=== PATIENT | male | born 1955 | race Caucasian/White ===

== ENCOUNTER 2016-08-06 17:28 | Inpatient (IN) | payer BC, OTHER ==
--- NOTE | 2016-08-06 18:23 | ED Physician Documentation ---
History of Present Illness - Stated complaint Stated Complaint: RT TOE OOZE - Chief complaint Chief Complaint: Ext Problem - History obtained from History obtained from: Patient, Family - History of Present Illness Timing: How many days ago (3) Pain level max: 0 Pain level now: 0 Improved by: nothing Worsened by: nothing - Additonal information Additional information: Type II DM, R great toe amputated 02/2016. Now swelling, redness and drainage. Diabetic neuropathy. Review of Systems Ten Systems: 10 systems reviewed and negative Constitutional: denies: Fever, Chills Nose: denies: Rhinorrhea / runny nose, Congestion Cardiac: denies: Chest pain / pressure Respiratory: denies: Cough GI: denies: Abdominal Pain, Vomiting Skin: denies: Rash Musculoskeletal: denies: Neck pain, Back pain Neurologic: denies: Focal weakness, Numbness, Headache PD PAST MEDICAL HISTORY - Past Medical History Past Medical History: Yes Endocrine/Autoimmune: Type 2 diabetes - Past Surgical History Past Surgical History: Yes Ortho: Amputation, Other HEENT: Tonsil/Adenoidectomy - Present Medications Home Medications: Ambulatory Orders Medication Instructions Recorded Confirmed Aspirin [Adult Low Dose Aspirin EC] 1 tab PO DAILY 08/06/16 08/06/16 Insulin Glargine [Lantus] 62 unit SQ DAILY 08/06/16 08/06/16 Sitagliptin Phos/Metformin HCl 1 tab PO BID 08/06/16 08/06/16 [Janumet 50-1,000 mg Tablet] - Allergies Allergies/Adverse Reactions: Allergies Allergy/AdvReac Type Severity Reaction Status Date / Time No Known Drug Allergies Allergy Verified 08/06/16 17:45 - Social History Does the pt smoke?: No Smoking Status: Never smoker Does the pt drink ETOH?: No Does the pt have substance abuse?: No - Immunizations Immunizations are current?: Yes - POLST Patient has POLST: No PD ED PE NORMAL - Vitals Vital signs reviewed: Yes - General General: Alert and oriented X 3, No acute distress - HEENT HEENT: Moist mucous membranes - Neck Neck: Supple, no meningeal sign - Cardiac Cardiac: RRR - Respiratory Respiratory: No respiratory distress, Clear bilaterally - Abdomen Abdomen: Soft, Non tender - Derm Derm: Warm and dry - Extremities Extremities: Other (R great toe s/p amputation. R 2nd toe is erythematous, swollen with necrotic area to the distal aspect.) - Neuro Neuro: Alert and oriented X 3 - Psych Psych: Normal mood, Normal affect Results - Vitals Vitals: Vital Signs - 24 hr 08/06/16 08/06/16 17:43 19:40 Temperature 37 C Heart Rate 96 92 Respiratory 16 17 Rate Blood Pressure 161/84 H 142/81 H O2 Saturation 100 95 Oxygen O2 Source Room air - Labs Labs: Laboratory Tests 08/06/16 08/06/16 08/06/16 18:30 18:30 18:30 WBC 10.6 RBC 5.88 Hgb 17.0 Hct 49.1 MCV 83.5 MCH 28.9 MCHC 34.5 RDW 15.0 Plt Count 312 MPV 8.0 Neut # 7.3 H Lymph # 2.0 [place] # 0.9 Eos # 0.3 Baso # 0.1 Absolute Nucleated RBC 0.01 Nucleated RBCs 0.1 ESR 4 Sodium 133 L Potassium 4.5 Chloride 99 L Carbon Dioxide 22 Anion Gap 12.0 BUN 17 Creatinine 1.2 Estimated GFR (MDRD) 62 L Glucose 431 H Calcium 9.5 C-Reactive Protein 4.2 H - Rads (name of study) R foot xray Radiology: Prelim report reviewed, EMP read contemporaneously, See rad report ( Fragmentation of the distal second metatarsal. This may be secondary to fracture however suspicious for osteomyelitis. Correlate clinically. ) PD MEDICAL DECISION MAKING - ED course Complexity details: reviewed results, re-evaluated patient, considered differential, d/w patient, d/w family, d/w retail consultant ED course: Patient is a 61-year-old male who is diabetic and has severe diabetic neuropathy in his feet. Does not have any sensation in his feet. The right great toe has artery been amputated at [facility] earlier this year. The right second digit is now erythematous, fusiform swelling with necrosis at the tip. Necrotic skin was removed and debrided. Xeroform gauze was placed over this wound. Wound cultures obtained. X-ray is concerning for possible osteomyelitis. Elevated CRP, though normal ESR. Mixed picture. Discussed the case with Dr. Scott, orthopedics who will evaluate the patient in the hospital. Recommends admission to the hospitalist. I spoke with the hospitalist who accepts for admission. Patient was given vancomycin and ciprofloxacin here. Will likely obtain MRI in the morning to confirm if this is an old fracture or osteomyelitis. This document was made in part using voice recognition software. While efforts are made to proofread this document, sound alike and grammatical errors may occur. Departure - Departure Disposition: [facility] DC/Xfer Clinical Impression: Diabetic foot infection Osteomyelitis Qualifiers: Osteomyelitis type: unspecified type Osteomyelitis location: foot Laterality: right Qualified Code(s): M86.9 - Osteomyelitis, unspecified Cellulitis Qualifiers: Site of cellulitis: extremity Site of cellulitis of extremity: toe Laterality: right Qualified Code(s): L03.031 - Cellulitis of right toe Condition: Stable Discharge Date/Time: 08/06/16 21:01
[2016-08-06 18:40] LABS: BASOPHILS # (AUTO) 0.1 10^3/uL (0.0-0.1); BASOPHILS % (AUTO) 0.6 %; EOSINOPHILS # (AUTO) 0.3 10^3/uL (0.0-0.7); EOSINOPHILS % (AUTO) 2.5 %; HCT - HEMATOCRIT 49.1 % (42.0-52.0); LYMPHOCYTES % (AUTO) 19.3 %; MEAN CORPUSCULAR HEMOGLOBIN 28.9 pg (27.0-31.0); MEAN CORPUSCULAR HGB CONC 34.5 g/dL (32.0-36.0); MEAN CORPUSCULAR VOLUME 83.5 fL (80.0-94.0); MONOCYTES # (AUTO) 0.9 10^3/uL (0.0-1.0); MONOCYTES % (AUTO) 8.7 %; NEUTROPHILS # (AUTO) 7.3 10^3/uL (1.5-6.6); NEUTROPHILS % (AUTO) 68.9 %; NUCLEATED RED BLOOD CELLS AUTO 0.1 /100WBC; RED BLOOD COUNT 5.88 10^6/uL (4.70-6.10); UNCORRECTED WHITE BLOOD COUNT 10.6 x10^3/uL; WHITE BLOOD COUNT 10.6 x10^3/uL (4.8-10.8)
[2016-08-06 18:57] LABS: CALCIUM 9.5 mg/dL (8.5-10.3); CREATININE 1.2 mg/dL (0.6-1.2); POTASSIUM 4.5 mmol/L (3.5-5.0)
--- NOTE | 2016-08-06 18:59 | XRAY Preliminary Report ---
Exam: XR Foot 3 View RT IMPRESSION: Fragmentation of the distal second metatarsal. This may be secondary to fracture however suspicious for osteomyelitis. Correlate clinically. [facility] SITE ID: [id number]
--- NOTE | 2016-08-06 19:01 | XRAY Report ---
EXAM: RIGHT FOOT RADIOGRAPHY EXAM DATE: 08/06/2016 06:29 PM. CLINICAL HISTORY: R 2nd toe infection. COMPARISON: None. TECHNIQUE: 3 views. FINDINGS: Bones: Status post transverse metatarsal amputation. There is a fracture through the second metatarsa l head with bony fragmentation and periosteal bone formation. No other evidence of fracture. Joints: Normal. No subluxations. Soft Tissues: Forefoot soft tissue swelling. IMPRESSION: Fragmentation of the distal second metatarsal. This may be secondary to fracture however suspicious for osteomyelitis. Correlate clinically. [facility] Referring Provider Line: [phone] SITE ID: [id number]
[2016-08-06] MEDS ORDERED: VANCOMYCIN INJ 1 GM in SODIUM CHLORIDE 0.9% 250 ML IV STA (19:04)
[2016-08-06] MEDS ORDERED: CIPROFLOXACIN 400 MG/200 ML 200 ML IV ONE ×2 (19:04→19:20)
[2016-08-06] MEDS ORDERED: VANCOMYCIN 1 GM VIAL ONE ×2 (19:20→20:46)
[2016-08-06] MEDS ORDERED: INSULIN REGULAR HUMAN 100 UNIT/1 ML 10 ML MDV IVP SCH (20:08)
[2016-08-06] MEDS ORDERED: oxyCODONE 5 MG TABLET PO PRN (20:09)
[2016-08-06] MEDS ORDERED: ONDANSETRON 4 MG/2 ML VIAL IVP PRN (20:09)
[2016-08-06] MEDS ORDERED: SODIUM CHLORIDE FLUSH 0.9% 10 ML SYRINGE IVP PRN (20:09)
[2016-08-06] MEDS ORDERED: ZOLPIDEM 5 MG TABLET PO PRN (20:09)
[2016-08-06] MEDS ORDERED: ACETAMINOPHEN 325 MG TABLET PO PRN (20:09)
[2016-08-06] MEDS ORDERED: INSULIN REGULAR HUMAN 100 UNIT/1 ML 10 ML MDV ONE (20:42)
[2016-08-06] MEDS ORDERED: INSULIN GLARGINE 300 UNIT/3 ML PEN SUBQ SCH (21:00)
[2016-08-06] MEDS: INSULIN ASPART 300 UNIT/3 ML PEN SUBQ SCH (21:44)
[2016-08-06] MEDS: SODIUM CHLORIDE 0.9% 500 ML IV SCH (21:46)
[2016-08-06] MEDS: SODIUM CHLORIDE FLUSH 0.9% 10 ML SYRINGE IVP SCH (21:46)
[2016-08-07 06:33] LABS: BILIRUBIN,URINE NEGATIVE (NEGATIVE); PH,URINE 5.5 PH (5.0-7.5)
[2016-08-07 06:36] LABS: UA w/ MICROSCOPIC CHARGE YES
[2016-08-07 06:43] LABS: UR CULTURE IF IND NOT INDICATED; WBC,URINE 0-3 /HPF (0-3)
[2016-08-07 06:57] LABS: HEMOGLOBIN A1C 1.49 g/dL
[2016-08-07] MEDS: INSULIN ASPART 300 UNIT/3 ML PEN SUBQ SCH ×4 (09:43→20:42)
[2016-08-07] MEDS: SODIUM CHLORIDE FLUSH 0.9% 10 ML SYRINGE IVP SCH ×3 (09:43→22:33)
--- NOTE | 2016-08-07 10:15 | PROVIDER PROGRESS NOTE ---
Subjective - Prog Note Date Prog Note Date: 08/07/16 Prog Note Time: 10:12 - Subjective Pt reports feeling: No change (No pain. Insensate foot to about the posterior ankle area/distal calf) Subjective: Has noticed swollen, red 2nd toe x 4-5 days. Poor sensation in foot as a baseline. No fever or chills. No known trauma to foot. Hx of recent (02/2016) right great toe amputation due to toe osteomyelitis - done at [facility]. Objective - Vital Signs/Intake & Output Vital Signs: Vital Signs x48h Temp Pulse Resp BP Pulse Ox 08/07/16 07:32 37.0 C 75 14 162/76 H 94 Intake & Output: Intake & Output 08/04/16 08/05/16 08/06/16 08/07/16 23:59 23:59 23:59 23:59 Intake Total 450 1195 Balance 450 1195 - Lab Results Fish Bones: 08/06/16 18:30 08/06/16 18:30 Other Labs: Lab Results x24hrs 08/07/16 08/07/16 08/07/16 Range/Units 07:51 06:10 05:13 POC Whole Bld Glucose 91 (70 - 100) mg/dL Glycated Hemoglobin 9.7 H (4.6-6.2) % Estim Average Glucose 232 H (70-100) Urine Color YELLOW Urine Clarity CLEAR (CLEAR) Urine pH 5.5 (5.0-7.5) PH Ur Specific [place] >=1.030 H (1.002-1.030) Urine Protein 30 H (NEGATIVE) mg/dL Urine Glucose (UA) >=1000 H (NEGATIVE) mg/dL Urine Ketones NEGATIVE (NEGATIVE) mg/dL Urine Occult Blood NEGATIVE (NEGATIVE) Urine Nitrite NEGATIVE (NEGATIVE) Urine Bilirubin NEGATIVE (NEGATIVE) Urine Urobilinogen 0.2 (NORMAL) (NORMAL) E.U./dL Ur Leukocyte Esterase NEGATIVE (NEGATIVE) Urine RBC 0-5 (0-5) /HPF Urine WBC 0-3 (0-3) /HPF Ur Squamous Epith Cells RARE Squamous (<= Few) Urine Bacteria None Seen (None Seen) /HPF Ur Microscopic Review INDICATED Urine Culture Comments NOT INDICATED 08/06/16 Range/Units 21:43 POC Whole Bld Glucose 128 H (70 - 100) mg/dL Glycated Hemoglobin (4.6-6.2) % Estim Average Glucose (70-100) Urine Color Urine Clarity (CLEAR) Urine pH (5.0-7.5) PH Ur Specific [place] (1.002-1.030) Urine Protein (NEGATIVE) mg/dL Urine Glucose (UA) (NEGATIVE) mg/dL Urine Ketones (NEGATIVE) mg/dL Urine Occult Blood (NEGATIVE) Urine Nitrite (NEGATIVE) Urine Bilirubin (NEGATIVE) Urine Urobilinogen (NORMAL) E.U./dL Ur Leukocyte Esterase (NEGATIVE) Urine RBC (0-5) /HPF Urine WBC (0-3) /HPF Ur Squamous Epith Cells (<= Few) Urine Bacteria (None Seen) /HPF Ur Microscopic Review Urine Culture Comments - Diagnostic Imaging Diagnostic Imaging Comments: XR show probable old healing 2nd MT fracture. Possible old fracture of distal 3rd and 4th MT head as well. Minimal cherry ges seen of 2nd toe phalanges - Other Results/Comments Other Results/Comments: EXAM: Hammer toe deformity of right 2nd toe. Absent great toe from prior amputation () Second toe is swollen and red with callous at tip of toe. No drainage. Numb toe. Gross sensation minimal to about posterior ankle/ distal calf. No lymphangitis Assessment/Plan - Problem List (1) Diabetic foot infection Impression: Unclear whether patient has a cellulitis alone or whether he has underlying osteomyelitis PLAN: Agree with IV antibiotics and will review scheduled MRI scan to determine if ther is any associated osteomyelitis in 2nd toe.
[2016-08-07] MEDS ORDERED: GADOBUTROL 10 MMOL/10 ML SYRINGE IVP ONE (10:59)
--- NOTE | 2016-08-07 11:08 | CONSULTATION NOTE ---
ORTHOPEDIC CONSULTATION DATE OF CONSULTATION: 08/07/2016 00:00:00 REQUESTING PROVIDER: Yunier Moody M.D., of the emergency room. CHIEF COMPLAINT: "My right 2nd toe is red and swollen." HISTORY OF PRESENT ILLNESS: The patient is a 61-year-old male diabetic, insulin-dependent f or the past 10-12 years, who has a history of a recent right great toe amputation due to osteomyeliti s from a diabetic foot infection in February [address] [facility], who presented to the emergency room on the day of his admission with a 4-5 day history of progressively swollen and red ri ght 2nd toe. He has a chronic hammertoe deformity. Has not noted any fever or drainage from his toe. Was concerned about the appearance of the toe, which prompted his evaluation in the emergency room. T he patient denies any recent trauma to his foot. He is aware that he has a relatively insensate foot from his diabetes. PHYSICAL EXAMINATION: Shows a right foot with an absent great toe on the right foot. Right 2nd toe is diffusely swollen and erythematous from about the MTP joint distally. He does have a typical hammert oe type deformity. There is a callus at the tip of the toe, but no open wounds or drainage noted. Toe is insensate and has no pain on palpation. Had some mild forefoot swelling noted. Sensation appeared to be diminished until the posterior ankle and distal calf level. No lymphangitis noted. IMAGING: X-rays of the right foot show no obvious bony destruction or erosions in the 2nd toe phalang es. Evidence of an old healing fracture of his 2nd metatarsal, as well as some what appear to be batter depositor heriberto changes in the 3rd and 4th metatarsal heads as well. Laboratories were significant for a normal white cell count and normal sedimentation rate. CRP was el evated at 4.0. ASSESSMENT: Right 2nd toe diabetic foot infection - unclear whether this involves the underlying phal anges or not based on exam and studies today. PLAN: Agree with starting the patient on IV antibiotics, has been done. Also agree to obtain an MRI s can of the foot, which is being done this morning. Depending on the results, we will determine what w e will proceed with. If the infection appears to be only of the soft tissue of the 2nd toe, will cont inue to treat this cellulitis with the IV antibiotics. If, however, it appears as if the bone is invo lved and that he has early osteomyelitis, would likely recommend amputation of the toe as a definitiv e treatment for removing the osteomyelitis of the toe. JOB #: [id number] EXT JOB #:[id number]
[2016-08-07] MEDS: ENOXAPARIN 40 MG/0.4 ML SYRINGE SUBQ SCH (11:56)
[2016-08-07] MEDS: POLYETHYLENE GLYCOL 3350 17 GM PACKET PO SCH (11:56)
--- NOTE | 2016-08-07 12:40 | MRI Report ---
EXAM: RIGHT FOREFOOT MRI WITHOUT AND WITH CONTRAST EXAM DATE: 08/07/2016 11:15 AM. CLINICAL HISTORY: Infection right great toe 3 years ago with subsequent amputation. Recent swelling a nd infection of the right second toe. COMPARISON: X-ray 08/06/2016. TECHNIQUE: Multiplanar, multisequence T1-weighted and fluid-sensitive sequences of the forefoot befor e and after administration of intravenous contrast. IV contrast: 9 cc gadavist administered, 1 cc was shital. Other: None. FINDINGS: Bones: There is a displaced fracture of the second metatarsal neck with marrow edema and dorsal displ acement. There are nondisplaced fractures of the third and fourth metatarsal heads with mild distraction and m oderate marrow edema. Partial collapse of the third metatarsal head. Marrow edema and mild marrow enhancement second toe distal phalanx tip with overlying soft tissue patricia ma in the second toe. Marrow edema of the distal first metatarsal stump. Associated marrow enhancement of the second, third and fourth distal metatarsals as well as the first metatarsal stump margin. Soft tissues: Moderate soft tissue edema and enhancement of the forefoot surrounding the first throug h fourth distal metatarsals and toes. Small second MTP joint effusion. Probable plantar ulcer under the second metatarsal head, seen on (1700/) with sinus tract extending to the plantar margin of the second metatarsal head. IMPRESSION: 1. 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 2. Small soft tissue tract extending from plantar second metatarsal head to the plantar skin surface. Unclear whether this is a pinpoint ulcer with sinus tract, or has not yet reached the skin surface. 3. Marrow edema and soft tissue edema distal second toe and distal phalanx. Differential includes rep etitive injury from hammertoe deformity versus early osteomyelitis. 4. Difficult to distinguish between osteomyelitis and neuropathic joint disease, given the degree of underlying fractures. 5. Moderate soft tissue edema and enhancement consistent with cellulitis. [facility] MUSCULOSKELETAL RADIOLOGY SECTION Verbal results discussed with Dr. Scott at 12:30 PM on 08/07/2016. Referring Provider Line: [phone] SITE ID: [id number]
--- NOTE | 2016-08-07 12:50 | PROVIDER PROGRESS NOTE ---
Subjective - Prog Note Date Prog Note Date: 08/07/16 Prog Note Time: 12:42 - Subjective Pt reports feeling: No change Objective - Vital Signs/Intake & Output Vital Signs: Vital Signs x48h Temp Pulse Resp BP Pulse Ox 08/07/16 07:32 37.0 C 75 14 162/76 H 94 Intake & Output: Intake & Output 08/04/16 08/05/16 08/06/16 08/07/16 23:59 23:59 23:59 23:59 Intake Total 450 1195 Balance 450 1195 - Lab Results Fish Bones: 08/06/16 18:30 08/06/16 18:30 Other Labs: Lab Results x24hrs 08/07/16 08/07/16 08/07/16 Range/Units 11:18 07:51 06:10 POC Whole Bld Glucose 185 H 91 (70 - 100) mg/dL Glycated Hemoglobin (4.6-6.2) % Estim Average Glucose (70-100) Urine Color YELLOW Urine Clarity CLEAR (CLEAR) Urine pH 5.5 (5.0-7.5) PH Ur Specific [place] >=1.030 H (1.002-1.030) Urine Protein 30 H (NEGATIVE) mg/dL Urine Glucose (UA) >=1000 H (NEGATIVE) mg/dL Urine Ketones NEGATIVE (NEGATIVE) mg/dL Urine Occult Blood NEGATIVE (NEGATIVE) Urine Nitrite NEGATIVE (NEGATIVE) Urine Bilirubin NEGATIVE (NEGATIVE) Urine Urobilinogen 0.2 (NORMAL) (NORMAL) E.U./dL Ur Leukocyte Esterase NEGATIVE (NEGATIVE) Urine RBC 0-5 (0-5) /HPF Urine WBC 0-3 (0-3) /HPF Ur Squamous Epith Cells RARE Squamous (<= Few) Urine Bacteria None Seen (None Seen) /HPF Ur Microscopic Review INDICATED Urine Culture Comments NOT INDICATED 08/07/16 08/06/16 Range/Units 05:13 21:43 POC Whole Bld Glucose 128 H (70 - 100) mg/dL Glycated Hemoglobin 9.7 H (4.6-6.2) % Estim Average Glucose 232 H (70-100) Urine Color Urine Clarity (CLEAR) Urine pH (5.0-7.5) PH Ur Specific [place] (1.002-1.030) Urine Protein (NEGATIVE) mg/dL Urine Glucose (UA) (NEGATIVE) mg/dL Urine Ketones (NEGATIVE) mg/dL Urine Occult Blood (NEGATIVE) Urine Nitrite (NEGATIVE) Urine Bilirubin (NEGATIVE) Urine Urobilinogen (NORMAL) E.U./dL Ur Leukocyte Esterase (NEGATIVE) Urine RBC (0-5) /HPF Urine WBC (0-3) /HPF Ur Squamous Epith Cells (<= Few) Urine Bacteria (None Seen) /HPF Ur Microscopic Review Urine Culture Comments - Diagnostic Imaging Diagnostic Imaging Comments: MRI scan shows evidence of healing multiple MT fractures. No abscess seen. 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 His send toe hammer toe deformity and neuropathic foot could explain the marrow edema of the tip of the second toe from microtrauma with ambulation. This along with his non toxic presentation, afebrile, Nl WBC and ESR (but elevate CRP) and the fact that the whole toe, not just the tip of the digit is swollen and red, makes cellulitis without underlying osteomyelitis the most likely scenerio. Would treat as cellulitis and see how toe evolves. If toe still inflamed or drainage developes after 7-10 days of antibiotics, would repeat XR to see if there is any bony destruction of the second distal phalanx consistent with osteomyelitis. Toe amputation was be recommended, if this were the case.
[2016-08-07] MEDS: SODIUM CHLORIDE 0.9% 500 ML IV SCH (14:53)
[2016-08-07] MEDS: CIPROFLOXACIN 400 MG/200 ML 200 ML IV SCH (15:58)
[2016-08-07] MEDS ORDERED: VANCOMYCIN INJ 2 GM in SODIUM CHLORIDE 0.9% 500 ML IV ONE (17:00)
[2016-08-07] MEDS: metFORMIN 500 MG TABLET PO SCH (17:01)
[2016-08-07] MEDS: INSULIN GLARGINE 300 UNIT/3 ML PEN SUBQ SCH (20:42)
[2016-08-08] MEDS: CIPROFLOXACIN 400 MG/200 ML 200 ML IV SCH ×2 (04:07→16:12)
[2016-08-08 05:14] LABS: BASOPHILS # (AUTO) 0.1 10^3/uL (0.0-0.1); BASOPHILS % (AUTO) 0.8 %; EOSINOPHILS # (AUTO) 0.5 10^3/uL (0.0-0.7); EOSINOPHILS % (AUTO) 5.3 %; HGB - HEMOGLOBIN 16.1 g/dL (14.0-18.0); LYMPHOCYTES # (AUTO) 2.3 10^3/uL (1.5-3.5); LYMPHOCYTES % (AUTO) 26.4 %; MEAN CORPUSCULAR HEMOGLOBIN 28.4 pg (27.0-31.0); MEAN CORPUSCULAR HGB CONC 34.3 g/dL (32.0-36.0); MEAN PLATELET VOLUME 7.7 fL (7.4-11.4); MONOCYTES # (AUTO) 0.9 10^3/uL (0.0-1.0); MONOCYTES % (AUTO) 10.9 %; NEUTROPHILS # (AUTO) 4.8 10^3/uL (1.5-6.6); NEUTROPHILS % (AUTO) 56.6 %; RED BLOOD COUNT 5.66 10^6/uL (4.70-6.10); RED CELL DISTRIBUTION WIDTH 14.9 % (12.0-15.0); UNCORRECTED WHITE BLOOD COUNT 8.5 x10^3/uL; WHITE BLOOD COUNT 8.5 x10^3/uL (4.8-10.8)
[2016-08-08] MEDS: VANCOMYCIN INJ 1 GM, VANCOMYCIN INJ 500 MG in SODIUM CHLORIDE 0.9% 500 ML IV SCH ×2 (05:26→17:47)
[2016-08-08] MEDS: SODIUM CHLORIDE FLUSH 0.9% 10 ML SYRINGE IVP SCH ×3 (05:29→16:12)
[2016-08-08 05:31] LABS: ALBUMIN/GLOBULIN RATIO 1.2 (1.0-2.2); BILIRUBIN,TOTAL 0.9 mg/dL (0.2-1.0); CALCIUM 8.7 mg/dL (8.5-10.3); CREATININE 1.1 mg/dL (0.6-1.2); POTASSIUM 3.9 mmol/L (3.5-5.0); TOTAL PROTEIN 6.4 g/dL (6.7-8.2)
[2016-08-08] MEDS: POLYETHYLENE GLYCOL 3350 17 GM PACKET PO SCH (08:42)
[2016-08-08] MEDS: metFORMIN 500 MG TABLET PO SCH ×2 (08:43→17:01)
[2016-08-08] MEDS: ASPIRIN EC 81 MG TABLET PO SCH (08:43)
[2016-08-08] MEDS: ENOXAPARIN 40 MG/0.4 ML SYRINGE SUBQ SCH (08:44)
[2016-08-08] MEDS: INSULIN ASPART 300 UNIT/3 ML PEN SUBQ SCH ×4 (08:45→20:35)
--- NOTE | 2016-08-08 09:59 | PROVIDER PROGRESS NOTE ---
Subjective - Prog Note Date Prog Note Date: 08/08/16 - Subjective Pt reports feeling: Improved (No pain) Objective - Vital Signs/Intake & Output Intake & Output: Intake & Output 08/05/16 08/06/16 08/07/16 08/08/16 23:59 23:59 23:59 23:59 Intake Total 450 2945 599 Balance 450 2945 599 - Lab Results Fish Bones: 08/08/16 04:55 08/08/16 04:55 Other Labs: Lab Results x24hrs 08/08/16 08/08/16 08/08/16 Range/Units 07:36 04:55 04:55 WBC (4.8-10.8) x10^3/uL RBC (4.70-6.10) 10^6/uL Hgb (14.0-18.0) g/dL Hct (42.0-52.0) % MCV (80.0-94.0) fL MCH (27.0-31.0) pg MCHC (32.0-36.0) g/dL RDW (12.0-15.0) % Plt Count (130-450) 10^3/uL MPV (7.4-11.4) fL Neut # (1.5-6.6) 10^3/uL Lymph # (1.5-3.5) 10^3/uL [place] # (0.0-1.0) 10^3/uL Eos # (0.0-0.7) 10^3/uL Baso # (0.0-0.1) 10^3/uL Absolute Nucleated RBC x10^3/uL Nucleated RBCs /100WBC ESR 6 (0-20) mm/Hr Sodium 138 (135-145) mmol/L Potassium 3.9 (3.5-5.0) mmol/L Chloride 107 (101-111) mmol/L Carbon Dioxide 26 (21-32) mmol/L Anion Gap 5.0 L (6-13) BUN 17 (6-20) mg/dL Creatinine 1.1 (0.6-1.2) mg/dL Estimated GFR (MDRD) 68 L (>89) Glucose 119 H (70-100) mg/dL POC Whole Bld Glucose 88 (70 - 100) mg/dL Calcium 8.7 (8.5-10.3) mg/dL Total Bilirubin 0.9 (0.2-1.0) mg/dL AST 13 (10-42) IU/L ALT 14 (10-60) IU/L Alkaline Phosphatase 72 (42-121) IU/L C-Reactive Protein 1.1 H (0-1.0) mg/dL Total Protein 6.4 L (6.7-8.2) g/dL Albumin 3.5 (3.2-5.5) g/dL Globulin 2.9 (2.1-4.2) g/dL Albumin/Globulin Ratio 1.2 (1.0-2.2) 08/08/16 08/07/16 08/07/16 Range/Units 04:55 20:31 16:51 WBC 8.5 (4.8-10.8) x10^3/uL RBC 5.66 (4.70-6.10) 10^6/uL Hgb 16.1 (14.0-18.0) g/dL Hct 47.0 (42.0-52.0) % MCV 83.0 (80.0-94.0) fL MCH 28.4 (27.0-31.0) pg MCHC 34.3 (32.0-36.0) g/dL RDW 14.9 (12.0-15.0) % Plt Count 297 (130-450) 10^3/uL MPV 7.7 (7.4-11.4) fL Neut # 4.8 (1.5-6.6) 10^3/uL Lymph # 2.3 (1.5-3.5) 10^3/uL [place] # 0.9 (0.0-1.0) 10^3/uL Eos # 0.5 (0.0-0.7) 10^3/uL Baso # 0.1 (0.0-0.1) 10^3/uL Absolute Nucleated RBC 0.00 x10^3/uL Nucleated RBCs 0.0 /100WBC ESR (0-20) mm/Hr Sodium (135-145) mmol/L Potassium (3.5-5.0) mmol/L Chloride (101-111) mmol/L Carbon Dioxide (21-32) mmol/L Anion Gap (6-13) BUN (6-20) mg/dL Creatinine (0.6-1.2) mg/dL Estimated GFR (MDRD) (>89) Glucose (70-100) mg/dL POC Whole Bld Glucose 219 H 215 H (70 - 100) mg/dL Calcium (8.5-10.3) mg/dL Total Bilirubin (0.2-1.0) mg/dL AST (10-42) IU/L ALT (10-60) IU/L Alkaline Phosphatase (42-121) IU/L C-Reactive Protein (0-1.0) mg/dL Total Protein (6.7-8.2) g/dL Albumin (3.2-5.5) g/dL Globulin (2.1-4.2) g/dL Albumin/Globulin Ratio (1.0-2.2) // Range/Units 11:18 WBC (4.8-10.8) x10^3/uL RBC (4.70-6.10) 10^6/uL Hgb (14.0-18.0) g/dL Hct (42.0-52.0) % MCV (80.0-94.0) fL MCH (27.0-31.0) pg MCHC (32.0-36.0) g/dL RDW (12.0-15.0) % Plt Count (130-450) 10^3/uL MPV (7.4-11.4) fL Neut # (1.5-6.6) 10^3/uL Lymph # (1.5-3.5) 10^3/uL [place] # (0.0-1.0) 10^3/uL Eos # (0.0-0.7) 10^3/uL Baso # (0.0-0.1) 10^3/uL Absolute Nucleated RBC x10^3/uL Nucleated RBCs /100WBC ESR (0-20) mm/Hr Sodium (135-145) mmol/L Potassium (3.5-5.0) mmol/L Chloride (101-111) mmol/L Carbon Dioxide (21-32) mmol/L Anion Gap (6-13) BUN (6-20) mg/dL Creatinine (0.6-1.2) mg/dL Estimated GFR (MDRD) (>89) Glucose (70-100) mg/dL POC Whole Bld Glucose 185 H (70 - 100) mg/dL Calcium (8.5-10.3) mg/dL Total Bilirubin (0.2-1.0) mg/dL AST (10-42) IU/L ALT (10-60) IU/L Alkaline Phosphatase (42-121) IU/L C-Reactive Protein (0-1.0) mg/dL Total Protein (6.7-8.2) g/dL Albumin (3.2-5.5) g/dL Globulin (2.1-4.2) g/dL Albumin/Globulin Ratio (1.0-2.2) - Other Results/Comments Other Results/Comments: EXAM: Afebrile. Toe: Less swollen and less red today. No drainage. N/V same Assessment/Plan - Problem List (1) Diabetic foot infection Impression: Improved PLAN: Continue antibiotic for treatment of presumed cellulitis to toe. Antibiotics x 2 weeks. Follow up with PCP as outpt for repeat exam, repeat labs to check inflammatory markers, and repeat XR of toe to see if any XR changes of second toe distal phalanx Dr. Gifford will be covering as needed, beginning on 08/09
--- NOTE | 2016-08-08 16:37 | PROVIDER PROGRESS NOTE ---
Assessment/Plan - Problem List (1) Diabetic foot infection Assessment/Plan: Terrillis on the IV antibiotics with out apparent SE. Tomorrow he will have ESR and CRP to see if markersa have improved. Toe has improved some in appearance. (2) Diabetes 1.5, managed as type 1 Assessment/Plan: Sugars have improved in the last 2 days. This am 123... Will continue present program. - Current Meds Current Meds: Current Medications Generic Name Dose Route Start Last Admin Trade Name Freq PRN Reason Stop Dose Admin Aspirin 81 mg 08/08/16 09:00 08/08/16 08:43 Ecotrin PO 81 mg DAILY BAYRON Administration Enoxaparin Sodium 40 mg 08/07/16 09:00 08/08/16 08:44 Lovenox SUBQ Not Given DAILY BAYRON Ciprofloxacin 200 mls @ 200 mls/hr 08/07/16 16:00 08/08/16 16:12 Cipro 400 Mg/200 Ml IV 200 mls/hr Q12H BARYON Administration Vancomycin HCl 1 gm/ 500 mls @ 250 mls/hr 08/08/16 05:00 08/08/16 05:26 Vancomycin HCl 500 mg/ Sodium IV 250 mls/hr Chloride Q12H BAYRON Administration Insulin Aspart 1 - 9 unit 08/06/16 21:00 08/08/16 11:51 Novolog SUBQ 1 unit 0800,1200,1700,2100 BAYRON Administration Protocol Insulin Glargine 62 unit 08/07/16 21:00 08/07/16 20:42 Lantus Solostar SUBQ 62 unit QPM BAYRON Administration Metformin HCl 1,000 mg 08/07/16 17:00 08/08/16 08:43 Glucophage PO 1,000 mg BIDWM BAYRON Administration Polyethylene Glycol 17 gm 08/07/16 09:00 08/08/16 08:42 Miralax PO 17 gm DAILY BAYRON Administration Sitagliptin Phosphate 100 mg 08/08/16 09:00 08/08/16 08:43 Januvia PO 100 mg DAILY BAYRON Administration Sodium Chloride 10 ml 08/06/16 20:09 08/08/16 04:10 Normal Saline Flush 0.9% IVP 10 ml PRN PRN Administration NEEDED PER PROVIDER ORDERS Sodium Chloride 10 ml 08/06/16 22:00 08/08/16 16:12 Normal Saline Flush 0.9% IVP 10 ml Q8HR BAYRON Administration - Lab Result Fish Bone Diagrams: 08/08/16 04:55 08/08/16 04:55 - Additional Planning My Orders: My Active Orders 08/07/16 16:00 Ciprofloxacin 400 mg/200 ml [Cipro 400 mg/200 ml] 200 ml IV Q12H 08/08/16 05:00 Vancomycin Inj [Vancomycin] 1 gm Vancomycin Inj 500 mg Sodium Chloride 0.9% [ Normal Saline 0.9%] 500 ml IV Q12H 08/09/16 05:00 CBC - COMP BLD CT W/AUTO DIFF [HEME] DAILYLAB COMPREHENSIVE METABOLIC PANEL [CHEM] DAILYLAB 08/09/16 16:30 VANCOMYCIN TROUGH [CHEM] Timed 08/10/16 05:00 CBC - COMP BLD CT W/AUTO DIFF [HEME] DAILYLAB COMPREHENSIVE METABOLIC PANEL [CHEM] DAILYLAB 08/11/16 05:00 CRP - C-REACTIVE PROTEIN [CHEM] DAILYLAB ESR- ERYTHROCYTE SEDIMENT RATE [HEME] DAILYLAB Subjective - Subjective Patient Reports: Feeling Better, Resting Comfortably Nursing Reports: No Complaints Objective Vital Signs: Vital Signs - 24 hr 08/07/16 08/08/16 23:40 12:33 Temperature 36.9 C 36.5 C Heart Rate [ 70 74 Monitoring electrodes] Respiratory 16 16 Rate Blood Pressure 144/83 H 148/83 H [Right Brachial artery] O2 Saturation 96 95 Oxygen O2 Source Room air I&O (Last 24 Hrs): Intake and Output Totals x24h 08/06/16 08/07/16 08/08/16 23:59 23:59 23:59 Intake Total 450 2945 1249 Balance 450 2945 1249 General: Alert, Oriented x3, Cooperative HEENT: PERRLA, EOMI Neck: No JVD, No thyromegaly Neuro: Alert, Oriented Times 3 Cardiovascular: Regular rate, No murmurs Respiratory: Chest non-tender, No respiratory distress, Breath sounds nml Abdomen: Normal bowel sounds, Soft - Results Results: Laboratory Results WBC 8.5 x10^3/uL (4.8-10.8) 08/08/16 04:55 RBC 5.66 10^6/uL (4.70-6.10) 08/08/16 04:55 Hgb 16.1 g/dL (14.0-18.0) 08/08/16 04:55 Hct 47.0 % (42.0-52.0) 08/08/16 04:55 MCV 83.0 fL (80.0-94.0) 08/08/16 04:55 MCH 28.4 pg (27.0-31.0) 08/08/16 04:55 MCHC 34.3 g/dL (32.0-36.0) 08/08/16 04:55 RDW 14.9 % (12.0-15.0) 08/08/16 04:55 Plt Count 297 10^3/uL (130-450) 08/08/16 04:55 MPV 7.7 fL (7.4-11.4) 08/08/16 04:55 Neut # 4.8 10^3/uL (1.5-6.6) 08/08/16 04:55 Lymph # 2.3 10^3/uL (1.5-3.5) 08/08/16 04:55 M[place]racken # 0.9 10^3/uL (0.0-1.0) 08/08/16 04:55 Eos # 0.5 10^3/uL (0.0-0.7) 08/08/16 04:55 Baso # 0.1 10^3/uL (0.0-0.1) 08/08/16 04:55 Absolute Nucleated RBC 0.00 x10^3/uL 08/08/16 04:55 Nucleated RBCs 0.0 /100WBC 08/08/16 04:55 ESR 6 mm/Hr (0-20) 08/08/16 04:55 Sodium 138 mmol/L (135-145) 08/08/16 04:55 Potassium 3.9 mmol/L (3.5-5.0) 08/08/16 04:55 Chloride 107 mmol/L (101-111) 08/08/16 04:55 Carbon Dioxide 26 mmol/L (21-32) 08/08/16 04:55 Anion Gap 5.0 (6-13) L 08/08/16 04:55 BUN 17 mg/dL (6-20) 08/08/16 04:55 Creatinine 1.1 mg/dL (0.6-1.2) 08/08/16 04:55 Estimated GFR (MDRD) 68 (>89) L 08/08/16 04:55 Glucose 119 mg/dL (70-100) H 08/08/16 04:55 POC Whole Bld Glucose 179 mg/dL (70 - 100) H 08/08/16 11:25 Glycated Hemoglobin 9.7 % (4.6-6.2) H 08/07/16 05:13 Estim Average Glucose 232 (70-100) H 08/07/16 05:13 Calcium 8.7 mg/dL (8.5-10.3) 08/08/16 04:55 Total Bilirubin 0.9 mg/dL (0.2-1.0) 08/08/16 04:55 AST 13 IU/L (10-42) 08/08/16 04:55 ALT 14 IU/L (10-60) 08/08/16 04:55 Alkaline Phosphatase 72 IU/L (42-121) 08/08/16 04:55 C-Reactive Protein 1.1 mg/dL (0-1.0) H 08/08/16 04:55 Total Protein 6.4 g/dL (6.7-8.2) L 08/08/16 04:55 Albumin 3.5 g/dL (3.2-5.5) 08/08/16 04:55 Globulin 2.9 g/dL (2.1-4.2) 08/08/16 04:55 Albumin/Globulin Ratio 1.2 (1.0-2.2) 08/08/16 04:55 Urine Color YELLOW 08/07/16 06:10 Urine Clarity CLEAR (CLEAR) 08/07/16 06:10 Urine pH 5.5 PH (5.0-7.5) 08/07/16 06:10 Ur Specific [place] >=1.030 (1.002-1.030) H 08/07/16 06:10 Urine Protein 30 mg/dL (NEGATIVE) H 08/07/16 06:10 Urine Glucose (UA) >=1000 mg/dL (NEGATIVE) H 08/07/16 06:10 Urine Ketones NEGATIVE mg/dL (NEGATIVE) 08/07/16 06:10 Urine Occult Blood NEGATIVE (NEGATIVE) 08/07/16 06:10 Urine Nitrite NEGATIVE (NEGATIVE) 08/07/16 06:10 Urine Bilirubin NEGATIVE (NEGATIVE) 08/07/16 06:10 Urine Urobilinogen 0.2 (NORMAL) E.U./dL (NORMAL) 08/07/16 06:10 Ur Leukocyte Esterase NEGATIVE (NEGATIVE) 08/07/16 06:10 Urine RBC 0-5 /HPF (0-5) 08/07/16 06:10 Urine WBC 0-3 /HPF (0-3) 08/07/16 06:10 Ur Squamous Epith Cells RARE Squamous (<= Few) 08/07/16 06:10 Urine Bacteria None Seen /HPF (None Seen) 08/07/16 06:10 Ur Microscopic Review INDICATED 08/07/16 06:10 Urine Culture Comments NOT INDICATED 08/07/16 06:10
[2016-08-08] MEDS: INSULIN GLARGINE 300 UNIT/3 ML PEN SUBQ SCH (20:35)
[2016-08-09] MEDS: CIPROFLOXACIN 400 MG/200 ML 200 ML IV SCH ×2 (04:07→16:10)
[2016-08-09] MEDS: VANCOMYCIN INJ 1 GM, VANCOMYCIN INJ 500 MG in SODIUM CHLORIDE 0.9% 500 ML IV SCH ×2 (05:22→17:18)
[2016-08-09] MEDS: SODIUM CHLORIDE FLUSH 0.9% 10 ML SYRINGE IVP SCH ×3 (05:27→20:40)
[2016-08-09 05:54] LABS: BASOPHILS # (AUTO) 0.1 10^3/uL (0.0-0.1); BASOPHILS % (AUTO) 0.9 %; EOSINOPHILS # (AUTO) 0.4 10^3/uL (0.0-0.7); EOSINOPHILS % (AUTO) 4.7 %; HCT - HEMATOCRIT 46.5 % (42.0-52.0); HGB - HEMOGLOBIN 15.9 g/dL (14.0-18.0); LYMPHOCYTES # (AUTO) 2.4 10^3/uL (1.5-3.5); MEAN CORPUSCULAR HEMOGLOBIN 28.3 pg (27.0-31.0); MEAN CORPUSCULAR HGB CONC 34.2 g/dL (32.0-36.0); MEAN CORPUSCULAR VOLUME 82.9 fL (80.0-94.0); MEAN PLATELET VOLUME 7.8 fL (7.4-11.4); MONOCYTES # (AUTO) 0.8 10^3/uL (0.0-1.0); MONOCYTES % (AUTO) 8.8 %; NEUTROPHILS # (AUTO) 5.4 10^3/uL (1.5-6.6); NEUTROPHILS % (AUTO) 59.6 %; RED BLOOD COUNT 5.61 10^6/uL (4.70-6.10); RED CELL DISTRIBUTION WIDTH 14.8 % (12.0-15.0); UNCORRECTED WHITE BLOOD COUNT 9.1 x10^3/uL; WHITE BLOOD COUNT 9.1 x10^3/uL (4.8-10.8)
[2016-08-09 06:21] LABS: ALBUMIN/GLOBULIN RATIO 1.2 (1.0-2.2); BILIRUBIN,TOTAL 0.8 mg/dL (0.2-1.0); CALCIUM 8.8 mg/dL (8.5-10.3); POTASSIUM 3.7 mmol/L (3.5-5.0); TOTAL PROTEIN 6.2 g/dL (6.7-8.2)
--- NOTE | 2016-08-09 08:10 | HISTORY & PHYSICAL EXAMINATION ---
DATE OF ADMISSION: 08/06/2016 CHIEF COMPLAINT: Right toe pain and swelling. HISTORY OF PRESENT ILLNESS: The patient is a 61-year-old white male with past medical history of insulin-dependent diabetes, with possible history of MRSA skin infection, and with history of diabetic foot status post right great toe amputation. The patient was a good historian. He reported that usually he has uncontrolled blood glucose. He takes his outpatient medications regularly; however, he does not have followup with an thread twister. He underwent a right great toe amputation in February 2016 at [facility]. Following the surgery, he did receive 2 weeks antibiotics. Since then he had no trouble with his foot up to about a week ago. About a week ago, he noticed that on his right foot, the second toe started to swell up and had small amount of discharge. It was painful and red. The patient tried to reach his usual doctors; however, he could not reach them. Therefore, he came to the [facility] ER to get evaluated. The patient denied fever. Regarding vascular disease, he told me that he was evaluated with multiple studies, and the way he described them, it is most likely ankle brachial index measurements, and was told not to have any vascular problem. Other than the right second toe problem, he reports no complaint. Upon presentation to the ER, the patient was found hemodynamically stable, although his blood pressure was slightly elevated at 160 initially, it spontaneously decreased to 140. His temperature was elevated as well at 37 Celsius. He was found hyperglycemic with a blood glucose of 430. Underwent x- ray of the right foot, which showed a possible injury, highly suspicious for osteomyelitis. The case was discussed with the orthopedic surgeon, Dr. Scott, who will see the patient in consultation. I was told by the ER physician that Dr. Scott was planning surgery to be done on the morning of 08/07/2016. The patient, however, tells me that he had a similar problem in the past, and he knows that the gold standard to diagnose osteomyelitis would be an MRI, and he requested me to order that. He told me that he would not agree to surgery until the MRI was done and resulted. PAST MEDICAL HISTORY 1. History of diabetic foot/status post amputation of right great toe in 2016. 2. Insulin-dependent diabetes. 3. History of MRSA. MEDICATIONS Outpatient medications included: 1. Insulin glargine. 2. Metformin. 3. Sitagliptin. 4. Aspirin. ALLERGIES: NO KNOWN DRUG ALLERGIES. SOCIAL HISTORY: The patient does not smoke. He works as an commercial electrician. FAMILY HISTORY: Positive for diabetes in the father. REVIEW OF SYSTEMS: Please see pertinent positives listed at HPI, the patient did not report additional complaint on the 12 point review. PHYSICAL EXAMINATION VITAL SIGNS: Temperature 37 Celsius, heart rate in the 90s, blood pressure 140/ 80, respiration rate 17, oxygen saturation 95% on room air. GENERAL: The patient is a well-developed male who is not in distress. CARDIOVASCULAR: S1, S2, regular tachycardia. I could not hear a murmur, rub, or gallop. RESPIRATORY: Clear to auscultation bilaterally without wheezes or crackles. ABDOMEN: Soft, benign. Nontender. Bowel sounds present. NEUROLOGIC: Neurologically alert, oriented, nonfocal. PSYCHIATRIC: Cooperative. MUSCULOSKELETAL: Right foot appeared with erythema and status post right great toe amputation. In addition, there was wound and inflammation of the second toe. There appeared to be swelling of the forefoot, but the patient told me that is not new, and this is how his foot looks following the amputation. There was erythema as well, which, again, the patient stated was not new. SKIN: No jaundice, no rash. Inflammatory changes on the right foot. ASSESSMENT AND PLAN 1. Diabetic foot. 2. Probable right second toe osteomyelitis. 3. Uncontrolled blood glucose, hyperglycemia, poorly controlled diabetes. 4. Hypertension on admission, possibly situational. However, even subsequent blood pressure measurement is borderline high. If this patient has proteinuria, then he might benefit from small dose VERNA-inhibitor in the long run. 5. Hemodynamically stable. PLAN AND ORDERS 1. The patient is getting admitted as inpatient. 2. Blood glucose control will be with insulin sliding scale, continuing long- acting insulin for now. Notably, I do not think the patient will go for surgery tomorrow morning, as MRI will be done tomorrow morning; it will take a few hours until it results. Therefore, in the best case scenario, surgery could be done in the late afternoon. Therefore, for now, I will use the long-acting insulin. Given that the patient's diet will be different, in particular it is going to be a diabetic diet, I slightly decreased the long-acting insulin dose to avoid hypoglycemia. 3. Besides insulin sliding scale given small bolus regular insulin as well to control current blood glucose, which is above 400. 4. The patient was tachycardic and hyperglycemic; therefore, we will give a fluid bolus with normal saline. 5. We will continue antibiotics, ciprofloxacin and vancomycin as started by the ER physician, this was discussed with the orthopedic surgeon, and he agreed. 6. Cultures were sent including blood cultures, wound cultures, and MRSA screen. 7. Deep venous thrombosis prophylaxis. 8. FULL CODE. Time spent on the care of this patient was 60 minutes. JOB #: [id number] EXT JOB #:[id number] YVAN
[2016-08-09] MEDS: INSULIN ASPART 300 UNIT/3 ML PEN SUBQ SCH ×4 (09:24→20:40)
[2016-08-09] MEDS: ASPIRIN EC 81 MG TABLET PO SCH (09:38)
[2016-08-09] MEDS: metFORMIN 500 MG TABLET PO SCH ×2 (09:38→17:13)
[2016-08-09] MEDS: ENOXAPARIN 40 MG/0.4 ML SYRINGE SUBQ SCH (09:38)
[2016-08-09] MEDS: POLYETHYLENE GLYCOL 3350 17 GM PACKET PO SCH (09:38)
[2016-08-09] MEDS: LEVOTHYROXINE 75 MCG TABLET PO SCH (13:38)
[2016-08-09] MEDS: INSULIN GLARGINE 300 UNIT/3 ML PEN SUBQ SCH (20:38)
[2016-08-10] MEDS: SODIUM CHLORIDE FLUSH 0.9% 10 ML SYRINGE IVP SCH ×3 (04:21→15:48)
[2016-08-10] MEDS: CIPROFLOXACIN 400 MG/200 ML 200 ML IV SCH ×2 (04:21→15:48)
[2016-08-10] MEDS: LEVOTHYROXINE 75 MCG TABLET PO SCH (05:29)
[2016-08-10] MEDS: VANCOMYCIN INJ 1 GM, VANCOMYCIN INJ 500 MG in SODIUM CHLORIDE 0.9% 500 ML IV SCH (05:29)
[2016-08-10 05:45] LABS: BASOPHILS # (AUTO) 0.1 10^3/uL (0.0-0.1); BASOPHILS % (AUTO) 0.7 %; EOSINOPHILS # (AUTO) 0.4 10^3/uL (0.0-0.7); EOSINOPHILS % (AUTO) 4.5 %; HCT - HEMATOCRIT 45.4 % (42.0-52.0); HGB - HEMOGLOBIN 15.9 g/dL (14.0-18.0); LYMPHOCYTES # (AUTO) 2.3 10^3/uL (1.5-3.5); LYMPHOCYTES % (AUTO) 25.1 %; MEAN CORPUSCULAR VOLUME 82.9 fL (80.0-94.0); MEAN PLATELET VOLUME 7.7 fL (7.4-11.4); MONOCYTES # (AUTO) 0.6 10^3/uL (0.0-1.0); MONOCYTES % (AUTO) 7.1 %; NEUTROPHILS # (AUTO) 5.7 10^3/uL (1.5-6.6); NEUTROPHILS % (AUTO) 62.6 %; RED BLOOD COUNT 5.47 10^6/uL (4.70-6.10); RED CELL DISTRIBUTION WIDTH 14.7 % (12.0-15.0); UNCORRECTED WHITE BLOOD COUNT 9.1 x10^3/uL; WHITE BLOOD COUNT 9.1 x10^3/uL (4.8-10.8)
[2016-08-10 06:01] LABS: ALBUMIN/GLOBULIN RATIO 1.1 (1.0-2.2); BILIRUBIN,TOTAL 0.3 mg/dL (0.2-1.0); BUN - BLOOD UREA NITROGEN 15 mg/dL (6-20); CALCIUM 8.7 mg/dL (8.5-10.3); CARBON DIOXIDE - CO2 25 mmol/L (21-32); CHLORIDE 105 mmol/L (101-111); GFR - MDRD 76 (>89); GLUCOSE 148 mg/dL (70-100); POTASSIUM 3.9 mmol/L (3.5-5.0); SODIUM 137 mmol/L (135-145); TOTAL PROTEIN 6.4 g/dL (6.7-8.2)
[2016-08-10] MEDS: ENOXAPARIN 40 MG/0.4 ML SYRINGE SUBQ SCH (08:12)
[2016-08-10] MEDS: ASPIRIN EC 81 MG TABLET PO SCH (08:13)
[2016-08-10] MEDS: metFORMIN 500 MG TABLET PO SCH ×2 (08:13→17:29)
[2016-08-10] MEDS: INSULIN ASPART 300 UNIT/3 ML PEN SUBQ SCH ×4 (08:15→21:14)
[2016-08-10] MEDS: POLYETHYLENE GLYCOL 3350 17 GM PACKET PO SCH (08:15)
--- NOTE | 2016-08-10 13:39 | PROVIDER PROGRESS NOTE ---
Subjective - Prog Note Date Prog Note Date: 08/10/16 Prog Note Time: 13:37 - Subjective Pt reports feeling: Improved Subjective: pt denies drainage or pain in toe. attempting to improve control of dm. checks bs daily and plans to fu with PCP Objective - Vital Signs/Intake & Output Vital Signs: Vital Signs x48h Temp Pulse Resp BP Pulse Ox 08/10/16 07:30 36.4 C L 60 18 158/80 H 97 Intake & Output: Intake & Output 08/07/16 08/08/16 08/09/16 08/10/16 23:59 23:59 23:59 23:59 Intake Total 2945 2703 2975 1580 Balance 2945 2703 2975 1580 - Objective General Appearance: positive: No acute distress Respiratory: positive: Chest non-tender, No respiratory distress, Breath sounds nml Cardiovascular: positive: Regular rate & rhythm, No murmur Abdomen: positive: Non-tender, No organomegaly, Nml bowel sounds, No distention. negative: Tenderness Skin: positive: Color nml, No rash Extremities: positive: Non-tender, No pedal edema, Other (left second toe, non tender no dc or drainage. hammertoe with pinpoint opening at tip.) Neurologic/Psychiatric: positive: Oriented x3. negative: Depressed mood/affect - Lab Results Fish Bones: 08/10/16 05:21 08/10/16 05:21 Other Labs: Lab Results x24hrs 08/10/16 08/10/16 08/10/16 Range/Units 11:28 07:26 05:21 WBC (4.8-10.8) x10^3/uL RBC (4.70-6.10) 10^6/uL Hgb (14.0-18.0) g/dL Hct (42.0-52.0) % MCV (80.0-94.0) fL MCH (27.0-31.0) pg MCHC (32.0-36.0) g/dL RDW (12.0-15.0) % Plt Count (130-450) 10^3/uL MPV (7.4-11.4) fL Neut # (1.5-6.6) 10^3/uL Lymph # (1.5-3.5) 10^3/uL [place] # (0.0-1.0) 10^3/uL Eos # (0.0-0.7) 10^3/uL Baso # (0.0-0.1) 10^3/uL Absolute Nucleated RBC x10^3/uL Nucleated RBCs /100WBC ESR 5 (0-20) mm/Hr Sodium (135-145) mmol/L Potassium (3.5-5.0) mmol/L Chloride (101-111) mmol/L Carbon Dioxide (21-32) mmol/L Anion Gap (6-13) BUN (6-20) mg/dL Creatinine (0.6-1.2) mg/dL Estimated GFR (MDRD) (>89) Glucose (70-100) mg/dL POC Whole Bld Glucose 98 95 (70 - 100) mg/dL Calcium (8.5-10.3) mg/dL Total Bilirubin (0.2-1.0) mg/dL AST (10-42) IU/L ALT (10-60) IU/L Alkaline Phosphatase (42-121) IU/L C-Reactive Protein (0-1.0) mg/dL Total Protein (6.7-8.2) g/dL Albumin (3.2-5.5) g/dL Globulin (2.1-4.2) g/dL Albumin/Globulin Ratio (1.0-2.2) Last Dose Date Last Dose Time Vancomycin Trough (5.0-15.0) ug/mL 08/10/16 08/10/16 08/09/16 Range/Units 05:21 05:21 20:31 WBC 9.1 (4.8-10.8) x10^3/uL RBC 5.47 (4.70-6.10) 10^6/uL Hgb 15.9 (14.0-18.0) g/dL Hct 45.4 (42.0-52.0) % MCV 82.9 (80.0-94.0) fL MCH 29.0 (27.0-31.0) pg MCHC 35.0 (32.0-36.0) g/dL RDW 14.7 (12.0-15.0) % Plt Count 316 (130-450) 10^3/uL MPV 7.7 (7.4-11.4) fL Neut # 5.7 (1.5-6.6) 10^3/uL Lymph # 2.3 (1.5-3.5) 10^3/uL [place] # 0.6 (0.0-1.0) 10^3/uL Eos # 0.4 (0.0-0.7) 10^3/uL Baso # 0.1 (0.0-0.1) 10^3/uL Absolute Nucleated RBC 0.00 x10^3/uL Nucleated RBCs 0.0 /100WBC ESR (0-20) mm/Hr Sodium 137 (135-145) mmol/L Potassium 3.9 (3.5-5.0) mmol/L Chloride 105 (101-111) mmol/L Carbon Dioxide 25 (21-32) mmol/L Anion Gap 7.0 (6-13) BUN 15 (6-20) mg/dL Creatinine 1.0 (0.6-1.2) mg/dL Estimated GFR (MDRD) 76 L (>89) Glucose 148 H (70-100) mg/dL POC Whole Bld Glucose 176 H (70 - 100) mg/dL Calcium 8.7 (8.5-10.3) mg/dL Total Bilirubin 0.3 (0.2-1.0) mg/dL AST 13 (10-42) IU/L ALT 13 (10-60) IU/L Alkaline Phosphatase 67 (42-121) IU/L C-Reactive Protein < 1.0 (0-1.0) mg/dL Total Protein 6.4 L (6.7-8.2) g/dL Albumin 3.4 (3.2-5.5) g/dL Globulin 3.0 (2.1-4.2) g/dL Albumin/Globulin Ratio 1.1 (1.0-2.2) Last Dose Date Last Dose Time Vancomycin Trough (5.0-15.0) ug/mL 08/09/16 08/09/16 Range/Units 16:29 16:20 WBC (4.8-10.8) x10^3/uL RBC (4.70-6.10) 10^6/uL Hgb (14.0-18.0) g/dL Hct (42.0-52.0) % MCV (80.0-94.0) fL MCH (27.0-31.0) pg MCHC (32.0-36.0) g/dL RDW (12.0-15.0) % Plt Count (130-450) 10^3/uL MPV (7.4-11.4) fL Neut # (1.5-6.6) 10^3/uL Lymph # (1.5-3.5) 10^3/uL [place] # (0.0-1.0) 10^3/uL Eos # (0.0-0.7) 10^3/uL Baso # (0.0-0.1) 10^3/uL Absolute Nucleated RBC x10^3/uL Nucleated RBCs /100WBC ESR (0-20) mm/Hr Sodium (135-145) mmol/L Potassium (3.5-5.0) mmol/L Chloride (101-111) mmol/L Carbon Dioxide (21-32) mmol/L Anion Gap (6-13) BUN (6-20) mg/dL Creatinine (0.6-1.2) mg/dL Estimated GFR (MDRD) (>89) Glucose (70-100) mg/dL POC Whole Bld Glucose 143 H (70 - 100) mg/dL Calcium (8.5-10.3) mg/dL Total Bilirubin (0.2-1.0) mg/dL AST (10-42) IU/L ALT (10-60) IU/L Alkaline Phosphatase (42-121) IU/L C-Reactive Protein (0-1.0) mg/dL Total Protein (6.7-8.2) g/dL Albumin (3.2-5.5) g/dL Globulin (2.1-4.2) g/dL Albumin/Globulin Ratio (1.0-2.2) Last Dose Date UNK Last Dose Time UNK Vancomycin Trough 14.6 (5.0-15.0) ug/mL Assessment/Plan - Problem List (1) Diabetes 1.5, managed as type 1 Impression: blood sugar improved. Encouraged pt to check BS more frequently and follow diabetic diet. Continue current rx (2) Diabetic foot infection Impression: Continue Cipro, discontinue Vancomycin. Plan is to send pt home on oral abx with close fu with ortho. Encouraged pt to visually inspect feet daily and to wear protective foot wear to prevent additional injury. Continue IV abx for one more day, anticipate dc tomorrow.
[2016-08-10] MEDS: INSULIN GLARGINE 300 UNIT/3 ML PEN SUBQ SCH (21:15)
[2016-08-11] MEDS: SODIUM CHLORIDE FLUSH 0.9% 10 ML SYRINGE IVP SCH (04:01)
[2016-08-11] MEDS: CIPROFLOXACIN 400 MG/200 ML 200 ML IV SCH (04:01)
[2016-08-11] MEDS: LEVOTHYROXINE 75 MCG TABLET PO SCH (06:32)
--- NOTE | 2016-08-11 08:26 | Discharge Plan ---
Discharge Plan Disposition: 01 Home, Self Care Condition: Stable Diet: Diabetic Activity Restrictions: No Restrictions (follow up with the orthopedic surgeon.) No Smoking: If you smoke, Please STOP! Call for help.
[2016-08-11] MEDS: INSULIN ASPART 300 UNIT/3 ML PEN SUBQ SCH (08:27)
[2016-08-11 08:28] VITALS: BP 159/68
--- NOTE | 2016-08-11 08:38 | Discharge Plan ---
Discharge Plan Disposition: 01 Home, Self Care Condition: Stable Prescriptions: Levofloxacin [Levaquin] 500 mg PO DAILY #10 tablet Activity Restrictions: No Restrictions (follow up with the orthopedic surgeon.) No Smoking: If you smoke, Please STOP! Call for help. Follow-up with: Juan Daniels MD [Primary Care Provider] -
[2016-08-11] MEDS: metFORMIN 500 MG TABLET PO SCH (09:14)
[2016-08-11] MEDS: ASPIRIN EC 81 MG TABLET PO SCH (09:14)
[2016-08-11] MEDS: ENOXAPARIN 40 MG/0.4 ML SYRINGE SUBQ SCH (10:01)
[2016-08-11] MEDS: POLYETHYLENE GLYCOL 3350 17 GM PACKET PO SCH (10:01)
--- NOTE | 2016-08-12 08:27 | DISCHARGE SUMMARY ---
REASON FOR ADMISSION: 1. Right second toe diabetic foot infection/cellulitis. 2. Possible osteomyelitis. 3. Uncontrolled type 2 diabetes. 4. Hypertension not on therapy BRIEF HISTORY OF PRESENT ILLNESS: The patient is a 61-year-old white male with history of insulin dependent diabetes who presented with right foot second toe pain, redness, and swelling, and a small amount of discharge. HOSPITAL COURSE 1. Right second digit diabetic foot infection/cellulitis. The patient was admitted for IV antibiotics. He was evaluated by the orthopaedic surgeon who did not feel patient needed surgical debridement and recommended he continue on IV antibiotics in the hospital, oral antibiotics on discharge and close followup. The patient was discharged on Levaquin 500 mg daily for an additional 10 days. In the hospital he received IV vancomycin and ciprofloxacin. He had a wound culture which grew betahemolytic strep although this was a superficial swab of what I believe to be skin rather than deep culture, so it was not helpful. He had an MRSA PCR which was negative. 2. Diabetes, poorly controlled. His A1c was 9.7. The patient was encouraged to followup closely with his primary care provider to improve blood sugar control and warned that his toe would have much more difficult time healing if his blood sugars remains out of control. 3. Hypertension. The patient has mildly elevated blood pressure intermittently throughout his hospital course. He is not on antihypertensive therapy. Recommend that he followup with his primary care provider and start on an VERNA inhibitor for renal protection. The patient was continued on levothyroxine, Lantus, sitagliptin/metformin, aspirin, and Tylenol. New medication on discharge levofloxacin 500 mg daily for [address] Gifford within the next 1 to 2 weeks. The patient was instructed to return to the hospital if he developed pain, swelling, redness, fever, or signs of worsening infection. YVAN
== END 2016-08-11 09:45 | disposition home or self-care (01) | DRG 638 ==
LOC: ED 17:28 → MS 20:09
PROVIDERS: ADMIT Internal Medicine; ATTEND Internal Medicine
DX: E11.628 Type 2 diabetes mellitus with other skin complications (principal); M86.9 Osteomyelitis, unspecified; E11.65 Type 2 diabetes mellitus with hyperglycemia; L03.031 Cellulitis of right toe; E11.69 Type 2 diabetes mellitus with other specified complication; I10 Essential (primary) hypertension; E11.42 Type 2 diabetes mellitus with diabetic polyneuropathy; S92.321A Displaced fracture of second metatarsal bone, right foot, initial encounter for closed fracture; S92.331A Displaced fracture of third metatarsal bone, right foot, initial encounter for closed fracture; S92.341A Displaced fracture of fourth metatarsal bone, right foot, initial encounter for closed fracture; M20.41 Other hammer toe(s) (acquired), right foot; Z79.82 Long term (current) use of aspirin; Z79.4 Long term (current) use of insulin; Z86.14 Personal history of Methicillin resistant Staphylococcus aureus infection; Z79.84 Long term (current) use of oral hypoglycemic drugs
CPT/HCPCS: 36415; 80048; 80053; 81001; 81003; 83036; 85025; 85651; 86140; 87070; 87086; 87205; 87640; 96365; 96375; 99283; 99284; 99285

== ENCOUNTER 2016-12-08 12:05 | Outpatient (CLI) | payer OTHER ==
[2016-12-08 13:14] LABS: POTASSIUM 3.9 mmol/L (3.5-5.0)
== END 2016-12-08 12:06 | disposition home or self-care (01) ==
LOC: LAB 12:05
PROVIDERS: ATTEND Orthopaedic Surgery
DX: Z01.812 Encounter for preprocedural laboratory examination (principal); M20.61 Acquired deformities of toe(s), unspecified, right foot; L08.9 Local infection of the skin and subcutaneous tissue, unspecified
CPT/HCPCS: 36415; 80048

== ENCOUNTER 2019-05-11 19:37 | Emergency (ER) | payer OTHER ==
[2019-05-11] MEDS ORDERED: IOVERSOL 320 100 ML VIAL IVP ONE ×2 (19:51→20:48)
[2019-05-11 20:04] LABS: BASOPHILS # (AUTO) 0.1 10^3/uL (0.0-0.1); BASOPHILS % (AUTO) 0.8 %; EOSINOPHILS # (AUTO) 0.3 10^3/uL (0.0-0.7); EOSINOPHILS % (AUTO) 2.5 %; HGB - HEMOGLOBIN 18.9 g/dL (14.0-18.0); LYMPHOCYTES # (AUTO) 3.1 10^3/uL (1.5-3.5); LYMPHOCYTES % (AUTO) 30.7 %; MEAN CORPUSCULAR HGB CONC 36.3 g/dL (32.0-36.0); MEAN CORPUSCULAR VOLUME 82.8 fL (80.0-94.0); MEAN PLATELET VOLUME 9.9 fL (7.4-11.4); MONOCYTES # (AUTO) 0.9 10^3/uL (0.0-1.0); MONOCYTES % (AUTO) 8.8 %; NEUTROPHILS # (AUTO) 5.6 10^3/uL (1.5-6.6); NEUTROPHILS % (AUTO) 56.3 %; PLT - PLATELET COUNT 281 10^3/uL (130-450); RED BLOOD COUNT 6.29 10^6/uL (4.70-6.10)
--- NOTE | 2019-05-11 20:13 | CT Report ---
Reason: ataxia Procedure Date: 05/11/2019 Accession Number: [id number] / [id number] Procedure: CT - Head W/O Stroke Protocol CPT Code: Final Report FULL RESULT: EXAM: CT HEAD EXAM DATE: 05/11/2019 08:03 PM. CLINICAL HISTORY: 64-year-old male. Left arm weakness. Ataxia. COMPARISON: None. TECHNIQUE: Multiaxial CT images were obtained from the foramen magnum to the vertex. Reformats: Sagittal and coronal. IV contrast: None. In accordance with CT protocol optimization, one or more of the following dose reduction techniques were utilized for this exam: automated exposure control, adjustment of mA and/or KV based on patient size, or use of iterative reconstructive technique. FINDINGS: Parenchyma: No intraparenchymal hemorrhage. No evidence of mass, midline shift, or CT findings of acute infarction. [place]-white differentiation is distinct. Scattered periventricular and deep white matter hypodensities, nonspecific, favored to represent sequela of chronic microangiopathy. Likely chronic lacunar infarct right thalamus. Extraaxial Spaces: Normal for age. No subdural or epidural collections identified. Ventricles: Normal in size and position. Sinuses and Orbits: Imaged paranasal sinuses, orbits, and mastoids show no significant abnormality. Bones: No evidence of fracture or calvarial defect. Other: None. IMPRESSION: 1. No CT evidence of acute intracranial abnormality, specifically no CT evidence of acute infarct, intracranial hemorrhage, mass effect, midline shift, or hydrocephalus. ASPECTS 10. 2. Scattered periventricular and deep white matter hypodensities, nonspecific, favored to represent sequela of chronic microangiopathy. Likely chronic lacunar infarct right thalamus. RADIA The critical test notification system was initiated by Dr. Susanne Mccarthy at 08:08 PM on 05/11/2019. The above critical test findings were discussed with Yunier Moody by Dr. Susanne Mccarthy at 08:10 PM on 05/11/2019.
[2019-05-11 20:14] LABS: PT - PROTHROMBIN TIME 11.1 secs (9.9-12.6)
[2019-05-11 20:15] LABS: ALBUMIN 4.6 g/dL (3.2-5.5); ALBUMIN/GLOBULIN RATIO 1.4 (1.0-2.2); BILIRUBIN,TOTAL 0.4 mg/dL (0.2-1.0); CALCIUM 9.2 mg/dL (8.5-10.3); CREATININE 1.1 mg/dL (0.6-1.2); TOTAL PROTEIN 7.9 g/dL (6.7-8.2)
--- NOTE | 2019-05-11 20:36 | ED Physician Documentation ---
History of Present Illness - Stated complaint Stated Complaint: JOSE, LOSS OF BALANCE - Chief complaint Chief Complaint: Neuro - History obtained from History obtained from: Patient - History of Present Illness Timing: Today Pain level max: 5 Pain level now: 1 - Additonal information Additional information: 64-year-old male presents to the emergency department stating that he felt like he was off balance and could not walk earlier. [place] like he was bumping into objects. States he felt like his left arm was not working well either. He states that he had some numbness to the chin. No difficulty speaking or word finding. This is not happened to him before. He states he had an occipital headache at that time as well. The headache is since resolved and his balance is improving. No recent illnesses. No trauma. Nothing makes it better or worse. No history of stroke. Review of Systems Ten Systems: 10 systems reviewed and negative Constitutional: denies: Fever, Chills Ears: denies: Ear pain Nose: denies: Rhinorrhea / runny nose, Congestion GI: denies: Vomiting : denies: Dysuria Skin: denies: Rash Musculoskeletal: denies: Neck pain, Back pain Neurologic: denies: Headache PD PAST MEDICAL HISTORY - Past Medical History Cardiovascular: None Respiratory: None Endocrine/Autoimmune: Type 2 diabetes GI: None : None HEENT: None Psych: None Musculoskeletal: None Derm: None - Past Surgical History Past Surgical History: Yes Ortho: Amputation, Other HEENT: Tonsil/Adenoidectomy - Present Medications Home Medications: Ambulatory Orders Medication Instructions Recorded Confirmed Aspirin [Adult Low Dose Aspirin EC] 1 tab PO DAILY 08/06/16 12/09/16 Insulin Glargine [Lantus] 62 unit SQ DAILY 08/06/16 12/09/16 Sitagliptin Phos/Metformin HCl 1 tab PO BID 08/06/16 12/09/16 [Janumet 50-1,000 mg Tablet] Levothyroxine [Synthroid] 75 mcg PO QDAC 08/07/16 12/09/16 Insulin Lispro [Humalog] 10 - 20 units SQ BID 12/09/16 12/09/16 - Allergies Allergies/Adverse Reactions: Allergies Allergy/AdvReac Type Severity Reaction Status Date / Time No Known Drug Allergies Allergy Verified 05/11/19 19:41 - Social History Does the pt smoke?: No Smoking Status: Never smoker Does the pt drink ETOH?: No Does the pt have substance abuse?: No - Immunizations Immunizations are current?: Yes - POLST Patient has POLST: No PD ED PE NORMAL - Vitals Vital signs reviewed: Yes - General General: Alert and oriented X 3, No acute distress, Well developed/nourished - HEENT HEENT: Atraumatic, PERRL, Ears normal, Moist mucous membranes, Pharynx benign - Neck Neck: Supple, no meningeal sign, No bruit - Cardiac Cardiac: RRR, No murmur, Strong equal pulses - Respiratory Respiratory: No respiratory distress, Clear bilaterally - Abdomen Abdomen: Soft, Non tender, Non distended - Derm Derm: Warm and dry - Extremities Extremities: No edema, No calf tenderness / cord - Neuro Neuro: Alert and oriented X 3, pyrometer temperature regulator 2-12 intact, No motor deficit, No sensory deficit, Normal speech, Other (Normal cerebellar test. Normal [id number]. Mild antalgic gait. Negative Romberg) - Psych Psych: Normal mood, Normal affect Results - Vitals Vitals: Vital Signs - 24 hr 05/11/19 05/11/19 05/11/19 19:41 21:10 21:20 Temperature 36.7 C Heart Rate 95 74 69 Respiratory 14 18 18 Rate Blood Pressure 203/90 H 192/77 H 180/83 H O2 Saturation 97 05/11/19 21:36 Temperature Heart Rate 70 Respiratory Rate Blood Pressure 178/79 H O2 Saturation Oxygen O2 Source Room air - EKG (time done) 2013 Rate: Rate (enter#) (78) Rhythm: NSR (ectopic atrial rhythm), Other (PVC) Sharon: Anterior hemiblock (LAFB) Intervals: Normal UT QRS: Normal Ischemia: Normal ST segments - Labs Labs: Laboratory Tests 05/11/19 05/11/19 05/11/19 19:55 19:55 19:55 WBC 10.0 RBC 6.29 H Hgb 18.9 H Hct 52.1 H MCV 82.8 MCH 30.0 MCHC 36.3 H RDW 13.0 Plt Count 281 MPV 9.9 Neut # (Auto) 5.6 Lymph # (Auto) 3.1 Bartholomew # (Auto) 0.9 Eos # (Auto) 0.3 Baso # (Auto) 0.1 Absolute Nucleated RBC 0.00 Nucleated RBC % 0.0 PT 11.1 INR 1.0 Sodium 135 Potassium 3.7 Chloride 97 L Carbon Dioxide 26 Anion Gap 12.0 BUN 16 Creatinine 1.1 Estimated GFR (MDRD) 67 L Glucose 348 H Calcium 9.2 Total Bilirubin 0.4 AST 18 ALT 20 Alkaline Phosphatase 85 Total Protein 7.9 Albumin 4.6 Globulin 3.3 Albumin/Globulin Ratio 1.4 Lipase 55 H - Rads (name of study) Head CT Radiology: Final report received, EMP read contemporaneously, See rad report (No acute intracranial abnormality) CT angio head Radiology: Prelim report reviewed, EMP read contemporaneously Ct angio neck Radiology: Prelim report reviewed, EMP read contemporaneously PD MEDICAL DECISION MAKING - ED course Complexity details: reviewed results, re-evaluated patient, considered differential, d/w patient, d/w sap pp consultant ED course: Patient with what appears to be a TIA with ataxia. No acute findings on head CT. I discussed the case with our hospitalist, Dr. Howard, who accepts. He called back to the emergency department and states that there is no MRI available here for the next 5 days. Therefore he feels that the patient should be transferred. Discussed the case with Dr. Miah Paez, [facility] hospitalist who graciously accepts in transfer at [id number]. I also discussed the case with Dr. Sirena Morgan, neurology at [facility], she recommends usual care at this time and complete stroke work-up. I discussed the case with Dr. Trevino after the CT angios findings were returned with the abrupt termination of the left PICA. COBRA forms completed. Patient transferred Patient given 20 mg of labetalol and blood pressure decreased. CT angio head and neck: CTA NECK: 1. No CTA evidence of high grade stenosis, large vessel occlusion, acute dissection, aneurysm, or vascular malformation within extracranial arteries. 2. Approximately 30% narrowing proximal cervical right ICA, mild by NASCET criteria . CTA HEAD: 1. Abrupt termination of opacification of the left PICA (series 6 image 40), concerning for age indeterminant occlusion, including possibility of acute occlusion. 2. Otherwise unremarkable CTA of the head. Departure - Departure Disposition: 02 Transfer Acute Care Hosp Clinical Impression: TIA (transient ischemic attack), Ataxia, Polycythemia Diabetes Qualifiers: Diabetes mellitus type: other specified (including LUPE) Diabetes mellitus intermodal owner operator truck driver insulin use: with intermodal owner operator truck driver use Diabetes mellitus complication status: without complication Qualified Code(s): E13.9 - Other specified diabetes mellitus without complications Hypertension Qualifiers: Hypertension type: unspecified Qualified Code(s): I10 - Essential (primary) hypertension Condition: Good NIHSS - Time Time: 19:47 - Level of Consciousness Level of consciousness: (0) Alert, Keenly responsive LOC Questions: (0) Answers both Q's correct LOC Commands: (0) Performs both correctly - Gaze Best Gaze: (0) Normal - Visual Visual: (0) No loss - Facial Palsy Facial Palsy: (0) Normal, symmetrical movement - Motor Arms (both separate) Motor Arm (right): (0) No drift Motor Arm (left): (0) No drift - Motor Legs (both separate) Motor Leg (right): (0) No drift Motor Leg (left): (0) No drift - Limb Ataxia Limb Ataxia: (0) Absent - Sensory Sensory: (0) Normal - Best Language Best Language: (0) No aphasia - Dysarthria Dysarthria: (0) Normal - Extinction and Inattention (formally neg Extinction and inattention: (0) No abnormality - Total Score/Results Total Score/Result: 0
[2019-05-11] MEDS ORDERED: SODIUM CHLORIDE 0.9% 1,000 ML IV ONE ×3 (20:37→21:52)
[2019-05-11] MEDS ORDERED: ONDANSETRON 4 MG/2 ML VIAL IVP STA ×2 (20:39→22:06)
[2019-05-11] MEDS ORDERED: LABETALOL 20 MG/4 ML SYRINGE IVP STA (21:00)
--- NOTE | 2019-05-11 21:36 | CT Report ---
Reason: ataxia Procedure Date: 05/11/2019 Accession Number: [id number] / [id number] Procedure: CT - ANGIO HEAD W/WO CPT Code: Final Report FULL RESULT: EXAM: CT ANGIOGRAM HEAD AND NECK. CT SCAN HEAD WITH CONTRAST. EXAM DATE: 05/11/2019 08:42 PM. CLINICAL HISTORY: 64-year-old male with left arm weakness. Ataxia. COMPARISON: HEAD W/O STROKE PROTOCOL 05/11/2019 8:00 PM HEAD ANGIO 05/11/2019 8:26 PM. TECHNIQUE: Routine axial helical CTA imaging was performed from the aortic arch through the [place]. Routine axial CT imaging of the head was performed following contrast administration. Reconstructions: Routine multiplanar 3D MIP reconstructions. IV contrast: 80 mL OPTIRAY 320. NASCET Criteria are used for stenosis measurements. In accordance with CT protocol optimization, one or more of the following dose reduction techniques were utilized for this exam: automated exposure control, adjustment of mA and/or KV based on patient size, or use of iterative reconstructive technique. FINDINGS: CT SCAN HEAD: Noncontrast CT head dictated separately. No abnormal enhancement on the postcontrast CT head. CT ANGIOGRAM EXTRACRANIAL CIRCULATION: The visualized arch is unremarkable. Great vessels are patent and unremarkable. Right Carotid: Approximately 30% narrowing proximal cervical right ICA, mild by NASCET criteria . The common carotid, internal carotid, and external carotid arteries are patent. No evidence of acute dissection Left Carotid: The common carotid, internal carotid, and external carotid arteries are widely patent. No dissection, significant atherosclerotic plaque, or calcification identified. Vertebrals: The left vertebral artery is dominant. Abrupt termination of opacification of the left PICA (series 6 image 40), concerning for age indeterminant occlusion. The vertebrobasilar system otherwise shows no stenosis, dissection, aneurysm, or significant atherosclerotic disease. CT ANGIOGRAM INTRACRANIAL CIRCULATION: RIGHT: Internal Carotid artery: No evidence of dissection. No evidence of aneurysm along the intracranial ICA. Anterior Cerebral Artery: Patent without significant stenosis, aneurysm, or vascular malformation. Middle Cerebral Artery: Patent without significant stenosis, aneurysm, or vascular malformation. Posterior Cerebral Artery: Patent without significant stenosis, aneurysm, or vascular malformation. Posterior Communicating Artery: Not visualized, aplastic versus markedly hypoplastic LEFT: Internal Carotid artery: No evidence of dissection. No evidence of aneurysm along the intracranial ICA. Anterior Cerebral Artery: Patent without significant stenosis, aneurysm, or vascular malformation. Middle Cerebral Artery: Patent without significant stenosis, aneurysm, or vascular malformation. Posterior Cerebral Artery: Patent without significant stenosis, aneurysm, or vascular malformation. Posterior Communicating Artery: Not visualized, aplastic versus markedly hypoplastic CENTRAL: Anterior Communicating Artery: Patent. No aneurysm. The dural venous sinuses are patent. Other: The visualized lung apices are clear. Mild to moderate multilevel degenerative spondylosis, no acute fracture or traumatic subluxation. The visualized soft tissues of the neck demonstrate no acute abnormality. IMPRESSION: CT HEAD: 1. Noncontrast CT head dictated separately. 2. No abnormal enhancement on the postcontrast CT head. CTA NECK: 1. No CTA evidence of high grade stenosis, large vessel occlusion, acute dissection, aneurysm, or vascular malformation within extracranial arteries. 2. Approximately 30% narrowing proximal cervical right ICA, mild by NASCET criteria . CTA HEAD: 1. Abrupt termination of opacification of the left PICA (series 6 image 40), concerning for age indeterminant occlusion, including possibility of acute occlusion. 2. Otherwise unremarkable CTA of the head. OTHER: 1. No other acute findings. RADIA The critical result notification system was initiated by Dr. Susanne Mccarthy at 09:30 PM on 05/11/2019. The above critical result findings were discussed with Yunier Moody by Dr. Susanne Mccarthy at 09:33 PM on 05/11/2019.
[2019-05-11 21:37] VITALS: BP 178/79
[2019-05-11] MEDS ORDERED: ASPIRIN CHEW 81 MG TABLET PO STA (21:41)
[2019-05-11 21:52] LABS: BILIRUBIN,URINE NEGATIVE (NEGATIVE); GLUCOSE, URINE (UA) >=1000 mg/dL (NEGATIVE); KETONES,URINE (UA) NEGATIVE (NEGATIVE); LEUKOCYTE ESTERASE, URINE NEGATIVE (NEGATIVE); NITRITE,URINE NEGATIVE (NEGATIVE); OCCULT BLOOD,URINE NEGATIVE (NEGATIVE); PH,URINE 6.5 PH (5.0-7.5); PROTEIN,URINE NEGATIVE (NEGATIVE); UROBILINOGEN,URINE 0.2 (NORMAL) E.U./dL (NORMAL)
[2019-05-11 21:54] LABS: CLARITY,URINE CLEAR (CLEAR)
== END 2019-05-11 22:35 | disposition short-term general hospital (02) ==
LOC: ED 19:37
DX: G45.9 Transient cerebral ischemic attack, unspecified (principal); D75.1 Secondary polycythemia; I10 Essential (primary) hypertension; E11.9 Type 2 diabetes mellitus without complications; Z79.4 Long term (current) use of insulin
CPT/HCPCS: 36415; 70450; 70496; 70498; 80053; 81003; 83690; 85025; 85610; 93005; 96374; 96375; 96376; 99284; 99285; A9270; Q9967; 81001; 87086

== ENCOUNTER 2019-05-11 22:37 | Outpatient (CLI) | payer OTHER | END 2019-05-11 23:59 | disposition short-term general hospital (02) | LOC: EMS 22:37 | PROVIDERS: ATTEND Surgery | DX: R27.0 Ataxia, unspecified (principal); R11.2 Nausea with vomiting, unspecified | CPT/HCPCS: A0425; A0428 ==